=== PATIENT | male | born 1935 | race Caucasian/White ===

== ENCOUNTER 2022-02-24 19:15 | Inpatient (IN) ==
[2022-02-24] MEDS ORDERED: HYDROmorphone 1 MG/1 ML SYRINGE ONE ×2 (19:17→20:05)
[2022-02-24] MEDS ORDERED: MIDAZOLAM 2 MG/2 ML VIAL ONE (19:17)
[2022-02-24] MEDS ORDERED: hydrALAZINE 20 MG/1 ML VIAL ONE (19:32)
[2022-02-24] MEDS ORDERED: BIVALIRUDIN 250 MG VIAL IV ONE (19:36)
[2022-02-24] MEDS ORDERED: diphenhydrAMINE 50 MG/1 ML VIAL ONE (19:41)
[2022-02-24] MEDS ORDERED: EPTIFIBATIDE 20,000 MCG/10 ML VIAL ONE (19:50)
[2022-02-24] MEDS ORDERED: EPTIFIBATIDE 75 MG/100 ML BOTTLE IV ONE (19:50)
[2022-02-24] MEDS ORDERED: ZALEPLON 5 MG CAPSULE PO PRN (20:48)
[2022-02-24] MEDS ORDERED: ONDANSETRON 4 MG/2 ML VIAL IV PRN (20:48)
[2022-02-24] MEDS ORDERED: ACETAMINOPHEN 325 MG TABLET PO PRN (20:48)
[2022-02-24] MEDS: EPTIFIBATIDE 75 MG/100 ML BOTTLE IV SCH (21:00)
[2022-02-24] MEDS: SODIUM CHLORIDE 0.9% 1,000 ML IV SCH (21:05)
[2022-02-24] MEDS: ROSUVASTATIN 20 MG TABLET PO SCH (21:23)
[2022-02-24] MEDS: TICAGRELOR 90 MG TABLET PO SCH (21:23)
[2022-02-24 21:28] LABS: Bacteria,Urine Occasional /HPF (Few); RBC,Urine 1 /HPF (0-4)
[2022-02-24 21:29] LABS: Bilirubin,Urine Negative (Negative); Blood, Urine Negative (Negative); Glucose,Urine (UA) Negative (Negative); Ketones,Urine Negative (Negative); Nitrite,Urine Negative (Negative); Protein,Urine Negative (Negative); Urine Appearance Clear (Clear); Urine Color Yellow (Yellow); Urine Specific Gravity 1.015 (1.001-1.035); Urine Urobilinogen 0.2 eU/dL (<2.0)
[2022-02-25] MEDS: EPTIFIBATIDE 75 MG/100 ML BOTTLE IV SCH (02:20)
[2022-02-25] MEDS: SODIUM CHLORIDE 0.9% 1,000 ML IV SCH ×3 (02:42→09:58)
[2022-02-25 06:05] LABS: Basophils % 0.3 % (0.0-0.8); Eosinophils % 0.5 % (0.00-10.9); Hematocrit 42.6 VOL% (42.0-52.0); Hemoglobin 14.3 GM/DL (14.0-18.0); Immature Granulocytes % 0.4 %; Immature Granulocytes Absolute 0.03 #; Lymphocytes # 1.4 10*3/uL (1.4-4.0); Lymphocytes % 17.8 % (21.2-54.2); Mean Corpuscular HGB Conc 33.6 GM/DL (32-36); Mean Corpuscular Volume 100.9 FL (87-102); Mean Platelet Volume 11.6 FL (9.6-12.0); Monocytes # 0.8 10*3/uL (0.11-0.8); Monocytes % 9.5 % (1.7-12.7); Neutrophils % 71.5 % (38.7-73.9); Platelet Count 146 T/CUMM (130-400); Red Blood Count 4.22 MC/CUMM (3.8-5.5); Red Cell Distribution Width 13.3 % (9.3-17.3); White Blood Count 7.9 T/CUMM (4-12)
[2022-02-25 06:26] LABS: Calcium 8.8 MG/DL (8.5-10.1); Osmolality,Calculated 276.5 MOS/KG (273-304); Risk Ratio 3.43
[2022-02-25] MEDS: PANTOPRAZOLE 40 MG TABLET PO SCH (08:28)
[2022-02-25] MEDS: TICAGRELOR 90 MG TABLET PO SCH ×2 (08:28→20:12)
[2022-02-25] MEDS ORDERED: ASPIRIN EC 81 MG TABLET PO SCH (09:00)
[2022-02-25] MEDS ORDERED: DIAZEPAM 2 MG TABLET PO PRN (10:17)
[2022-02-25] MEDS ORDERED: FUROSEMIDE 40 MG TABLET PO ONE (10:29)
[2022-02-25] MEDS: FOLIC ACID 1 MG TABLET PO SCH ×2 (10:55→20:12)
[2022-02-25] MEDS: THIAMINE 100 MG TABLET PO SCH ×2 (10:55→20:12)
[2022-02-25] MEDS: MULTIVITAMIN (CENTRUM) TABLET PO SCH (10:55)
[2022-02-25] MEDS ORDERED: LORazepam 1 MG TABLET PO PRN (13:05)
[2022-02-25] MEDS: ROSUVASTATIN 20 MG TABLET PO SCH (20:12)
[2022-02-26 04:52] LABS: Basophils % 0.5 % (0.0-0.8); Eosinophils # 0.2 10*3/uL (0.0-0.87); Eosinophils % 2.5 % (0.00-10.9); Hematocrit 45.9 VOL% (42.0-52.0); Hemoglobin 15.6 GM/DL (14.0-18.0); Immature Granulocytes % 0.3 %; Immature Granulocytes Absolute 0.02 #; Lymphocytes # 1.6 10*3/uL (1.4-4.0); Lymphocytes % 20.5 % (21.2-54.2); Mean Corpuscular Volume 99.1 FL (87-102); Mean Platelet Volume 11.6 FL (9.6-12.0); Monocytes # 0.7 10*3/uL (0.11-0.8); Monocytes % 8.8 % (1.7-12.7); Neutrophils % 67.4 % (38.7-73.9); Platelet Count 134 T/CUMM (130-400); Red Blood Count 4.63 MC/CUMM (3.8-5.5); Red Cell Distribution Width 13.2 % (9.3-17.3); White Blood Count 7.9 T/CUMM (4-12)
[2022-02-26 05:17] LABS: Osmolality,Calculated 277.5 MOS/KG (273-304); Potassium 3.7 MMOL/L (3.5-5.1)
[2022-02-26] MEDS: MULTIVITAMIN (CENTRUM) TABLET PO SCH (08:56)
[2022-02-26] MEDS: TICAGRELOR 90 MG TABLET PO SCH ×2 (08:56→22:24)
[2022-02-26] MEDS: APIXABAN 5 MG TABLET PO SCH ×2 (08:57→22:25)
[2022-02-26] MEDS: ATORVASTATIN 40 MG TABLET PO SCH (08:57)
[2022-02-26] MEDS: PANTOPRAZOLE 40 MG TABLET PO SCH (08:57)
[2022-02-26] MEDS: THIAMINE 100 MG TABLET PO SCH ×2 (08:57→22:25)
[2022-02-26] MEDS: METOPROLOL TARTRATE 25 MG TABLET PO SCH ×2 (08:57→22:25)
[2022-02-26] MEDS: FOLIC ACID 1 MG TABLET PO SCH ×2 (08:57→22:25)
[2022-02-26] MEDS ORDERED: POTASSIUM CHLORIDE 20 MEQ TABLET PO ONE (09:58)
[2022-02-26] MEDS ORDERED: DIGOXIN 0.5 MG/2 ML AMP IV ONE (10:26)
[2022-02-26] MEDS: ASCORBIC ACID 500 MG TABLET PO SCH ×2 (10:46→22:24)
[2022-02-26] MEDS ORDERED: RANOLAZINE 500 MG TABLET PO ONE (12:30)
[2022-02-26] MEDS: LOSARTAN 25 MG TABLET PO SCH (16:16)
[2022-02-27 05:13] LABS: Basophils % 0.3 % (0.0-0.8); Eosinophils # 0.2 10*3/uL (0.0-0.87); Eosinophils % 1.6 % (0.00-10.9); Hematocrit 46.6 VOL% (42.0-52.0); Hemoglobin 15.9 GM/DL (14.0-18.0); Immature Granulocytes % 0.3 %; Immature Granulocytes Absolute 0.03 #; Lymphocytes # 2.4 10*3/uL (1.4-4.0); Lymphocytes % 23.5 % (21.2-54.2); Mean Corpuscular HGB Conc 34.1 GM/DL (32-36); Mean Corpuscular Volume 99.6 FL (87-102); Mean Platelet Volume 11.7 FL (9.6-12.0); Monocytes # 1.1 10*3/uL (0.11-0.8); Monocytes % 11.4 % (1.7-12.7); Neutrophils % 62.9 % (38.7-73.9); Platelet Count 155 T/CUMM (130-400); Red Blood Count 4.68 MC/CUMM (3.8-5.5); Red Cell Distribution Width 13.2 % (9.3-17.3)
[2022-02-27 05:29] LABS: Calcium 8.9 MG/DL (8.5-10.1); Osmolality,Calculated 279.5 MOS/KG (273-304); Potassium 3.7 MMOL/L (3.5-5.1)
[2022-02-27 08:28] VITALS: BP 126/70
[2022-02-27] MEDS: METOPROLOL TARTRATE 25 MG TABLET PO SCH (09:25)
[2022-02-27] MEDS: THIAMINE 100 MG TABLET PO SCH (09:26)
[2022-02-27] MEDS: ATORVASTATIN 40 MG TABLET PO SCH (09:26)
[2022-02-27] MEDS: LOSARTAN 25 MG TABLET PO SCH (09:26)
[2022-02-27] MEDS: TICAGRELOR 90 MG TABLET PO SCH (09:26)
[2022-02-27] MEDS: APIXABAN 5 MG TABLET PO SCH (09:26)
[2022-02-27] MEDS: ASCORBIC ACID 500 MG TABLET PO SCH (09:26)
[2022-02-27] MEDS: PANTOPRAZOLE 40 MG TABLET PO SCH (09:26)
[2022-02-27] MEDS: MULTIVITAMIN (CENTRUM) TABLET PO SCH (09:26)
[2022-02-27] MEDS: FOLIC ACID 1 MG TABLET PO SCH (09:26)
== END 2022-02-27 11:20 | disposition home or self-care (01) | DRG 247 ==
LOC: N.CVR 19:38 → SUATTDRO 19:38 → N.CC 20:09 → N.TELEN 02-26 16:37
PROVIDERS: ADMIT Internal Medicine Cardiovascular Disease; ATTEND Internal Medicine Cardiovascular Disease